=== PATIENT | male | born 1990 | race Caucasian/White ===

== ENCOUNTER 2017-09-21 17:15 | Emergency (ER) | payer OTHER ==
[2017-09-21 17:26] VITALS: BP 117/66; PULSE 74; RESP 20; TEMP 98.1
--- NOTE | 2017-09-21 18:03 | ED ---
Upper Extremity HPI - General Chief Complaint: Extremity Injury, Upper Stated Complaint: Hand injury Time Seen by Provider: 09/21/17 17:55 Source: patient, RN notes reviewed Mode of arrival: ambulatory Limitations: no limitations - History of Present Illness Initial Comments: This is a 26-year-old male who presents to the emergency department with chief complaint of left hand injury. Patient states that last night he punched a wall. He states that this morning he presented to his friend's dad who is a chiropractor who performed x-rays of the hand. Patient states that he fractured his hand. He brought a disc with his x-rays with him to the emergency department. Patient states that he is here to receive a splint. Denies any other injury. Denies fever, chills, chest pain, shortness of breath , abdominal pain, nausea or vomiting, constipation or diarrhea, dysuria or hematuria, numbness or tingling, headache or vision changes. - Related Data Home Medications Medication Instructions Recorded Confirmed No Known Home Medications [No 09/21/17 09/21/17 Known Home Medications] Allergies Allergy/AdvReac Type Severity Reaction Status Date / Time No Known Allergies Allergy Verified 09/21/17 18:14 Review of Systems ROS Statement: Those systems with pertinent positive or pertinent negative responses have been documented in the HPI. ROS Other: All systems not noted in ROS Statement are negative. Past Medical History Past Medical History: Asthma History of Any Multi-Drug Resistant Organisms: None Reported Past Surgical History: No Surgical Hx Reported Past Psychological History: No Psychological Hx Reported Smoking Status: Never smoker Past Alcohol Use History: None Reported Past Drug Use History: None Reported General Exam - General Exam Comments Initial Comments: General: Awake and alert, well-developed; in no apparent distress. HEENT: Head atraumatic, normocephalic. Pupils are equal, round and reactive to light. Extraocular movements intact. Neck: Supple. Normal ROM. Cardiovascular: Regular rate and rhythm. No murmurs, rubs or gallops. Chest symmetrical. Respiratory: Lungs clear to auscultation bilaterally. No wheezes, rales or rhonchi. Normal respiratory effort with no use of accessory muscles. Musculoskeletal: Normal active range of motion of the left fifth digit and MCP. There is localized soft tissue swelling and bruising noted at the fifth MCP. Sensation is intact. Radial pulses are 2+ equal and palpable bilaterally. Skin: [place], warm and dry without rashes or lesions. Neurological: Alert and oriented x3. CN II-XII grossly intact. Speech is fluent and answers are appropriate. No focal neuro deficits. Psychiatric: Normal mood and affect. No overt signs of depression or anxiety noted. Limitations: no limitations Course Vital Signs 09/21/17 17:23 Temperature 98.1 F Pulse Rate 74 Respiratory 20 Rate Blood Pressure 117/66 O2 Sat by Pulse 99 Oximetry Procedures - Orthopedic Splinting/Casting Injury #1 Side: left Upper Extremity Injury Location: hand Upper Extremity Immobilizer: ulnar gutter, synthetic pre-padded splint Additional Comments: short arm OCL ulnar gutter to left hand placed. Patient tolerated well without complication. He is neurovascularly intact. Medical Decision Making - Medical Decision Making This is a 26-year-old male presented to the emergency department chief complaint of left hand fracture. He presented with request to have splint placed. Patient provided a disc of hand x-ray which revealed an abnormality of the fifth metacarpal. The x-ray was reviewed with attending physician, Dr. Sullivan. Images were of poor quality and it was difficult to decipher if fracture was acute or not. I recommended repeat x-rays of the hand to the patient who declined, going against medical advice to obtain better images. He stated he wished to have a splint placed and that he would follow-up with orthopedics tomorrow. A short arm ulnar gutter OCL splint was placed and patient tolerated well without complication. He is neurovascularly intact. He was provided a referral to orthopedics for follow-up. Patient is in agreement with plan and voices understanding. All questions were answered. Disposition Clinical Impression: Injury of left hand Disposition: HOME SELF-CARE Condition: Good Instructions: Hand Fracture (ED), Hand Sprain (ED) Additional Instructions: Please follow-up with orthopedics, Dr. Welch tomorrow morning. Please keep splint clean, dry and intact. Please follow up with primary care provider within 1-2 days. Return to emergency department if symptoms should worsen or any concerns arise. Referrals: Lizandro Zhang MD [STAFF PHYSICIAN] - 1-2 days None,Stated [Primary Care Provider] - 1-2 days Jh Welch MD [STAFF PHYSICIAN] - 1-2 days Time of Disposition: 19:21
== END 2017-09-21 19:27 | disposition home or self-care (01) ==
LOC: EC 17:15
DX: S69.92XA Unspecified injury of left wrist, hand and finger(s), initial encounter (principal); W22.01XA Walked into wall, initial encounter
CPT/HCPCS: 29125; 99283

== ENCOUNTER 2020-12-21 21:04 | Emergency (ER) | payer OTHER ==
[2020-12-21 21:29] VITALS: BP 123/66; PULSE 83; TEMP 98.3
[2020-12-21 23:05] VITALS: RESP 18
--- NOTE | 2020-12-22 00:10 | ED ---
Skin/Abscess/FB HPI - General Chief complaint: Skin/Abscess/Foreign Body Stated complaint: possible allergic reaction/hives Time Seen by Provider: 12/21/20 23:28 Source: patient Mode of arrival: ambulatory Limitations: no limitations - History of Present Illness MD complaint: rash, other Onset/Timin -: week(s) Location: LUE, RUE, LLE, RLE Quality: burning Consistency: intermittent, now resolved Improves with: none Worsens with: none Context: none Associated symptoms: arthralgias Treatments Prior to Arrival: none - Related Data Previous Rx's Medication Instructions Recorded diphenhydrAMINE [Benadryl] 50 mg PO QID PRN #24 capsule 12/22/20 predniSONE [Deltasone] 20 mg PO BID #8 tab 12/22/20 Allergies Allergy/AdvReac Type Severity Reaction Status Date / Time iodine Allergy Rash/Hives Verified 12/21/20 21:29 Review of Systems ROS Statement: Those systems with pertinent positive or pertinent negative responses have been documented in the HPI. ROS Other: All systems not noted in ROS Statement are negative. Constitutional: Denies: fever, chills Respiratory: Denies: cough, dyspnea Cardiovascular: Denies: chest pain Gastrointestinal: Denies: abdominal pain, vomiting, diarrhea Genitourinary: Denies: dysuria, hematuria Musculoskeletal: Reports: arthralgia Skin: Reports: as per HPI, rash Past Medical History Past Medical History: Asthma History of Any Multi-Drug Resistant Organisms: None Reported Past Surgical History: No Surgical Hx Reported Past Psychological History: No Psychological Hx Reported Smoking Status: Never smoker Past Alcohol Use History: None Reported Past Drug Use History: Marijuana General Exam Limitations: no limitations General appearance: alert, in no apparent distress Head exam: Present: atraumatic, normocephalic Eye exam: Present: normal appearance. Absent: scleral icterus, conjunctival injection Respiratory exam: Present: normal lung sounds bilaterally. Absent: respiratory distress, wheezes, rales, rhonchi, stridor Cardiovascular Exam: Present: regular rate, normal rhythm, normal heart sounds. Absent: systolic murmur, diastolic murmur, rubs, gallop GI/Abdominal exam: Present: soft. Absent: distended, tenderness, guarding, rebound, rigid, mass Extremities exam: Present: normal inspection, normal capillary refill. Absent: pedal edema, calf tenderness Neurological exam: Present: alert Skin exam: Present: warm, dry, intact, normal color, urticaria (volar aspect lef t forearm) Course Vital Signs 12/21/20 12/21/20 21:22 23:05 Temperature 98.3 F Pulse Rate 83 Respiratory 20 18 Rate Blood Pressure 123/66 O2 Sat by Pulse 100 Oximetry Medical Decision Making - Lab Data Result diagrams: 12/21/20 00:05 12/21/20 00:05 Lab Results 12/21/20 12/21/20 Range/Units 00:05 00:05 WBC 7.0 (3.8-10.6) k/uL RBC 4.81 (4.30-5.90) m/uL Hgb 15.4 (13.0-17.5) gm/dL Hct 43.1 (39.0-53.0) % MCV 89.6 (80.0-100.0) fL MCH 32.0 (25.0-35.0) pg MCHC 35.7 (31.0-37.0) g/dL RDW 11.6 (11.5-15.5) % Plt Count 227 (150-450) k/uL MPV 8.2 Neutrophils % 77 % Lymphocytes % 15 % Monocytes % 7 % Eosinophils % 1 % Basophils % 0 % Neutrophils # 5.4 (1.3-7.7) k/uL Lymphocytes # 1.0 (1.0-4.8) k/uL Monocytes # 0.5 (0-1.0) k/uL Eosinophils # 0.0 (0-0.7) k/uL Basophils # 0.0 (0-0.2) k/uL Sodium 139 (137-145) mmol/L Potassium 4.0 (3.5-5.1) mmol/L Chloride 104 (98-107) mmol/L Carbon Dioxide 26 (22-30) mmol/L Anion Gap 9 mmol/L BUN 11 (9-20) mg/dL Creatinine 0.67 (0.66-1.25) mg/dL Est GFR (CKD-EPI)AfAm >90 (>60 ml/min/1.73 sqM) Est GFR (CKD-EPI)NonAf >90 (>60 ml/min/1.73 sqM) Glucose 97 (74-99) mg/dL Calcium 9.7 (8.4-10.2) mg/dL C-Reactive Protein 36.9 H (<10.0) mg/L Disposition Clinical Impression: Urticaria Disposition: HOME SELF-CARE Condition: Good Instructions (If sedation given, give patient instructions): Urticaria (ED) Prescriptions: diphenhydrAMINE [Benadryl] 50 mg PO QID PRN #24 capsule PRN Reason: Rash predniSONE [Deltasone] 20 mg PO BID #8 tab Is patient prescribed a controlled substance at d/c from ED?: No Referrals: None,Stated [Primary Care Provider] - 1-2 days Shayna Mckeon MD [STAFF PHYSICIAN] - 1-2 days Amina Yoder MD [STAFF PHYSICIAN] - 1-2 days
[2020-12-22 00:34] LABS: Basophils % (A) 0 %; Eosinophils % (A) 1 %; HCT 43.1 % (39.0-53.0); HGB 15.4 gm/dL (13.0-17.5); Lymphocytes % (A) 15 %; MCHC 35.7 g/dL (31.0-37.0); MCV 89.6 fL (80.0-100.0); Mean Platelet Volume 8.2; Monocytes # (A) 0.5 k/uL (0-1.0); Monocytes % (A) 7 %; Neutrophils # (A) 5.4 k/uL (1.3-7.7); Neutrophils % (A) 77 %; Platelet Count 227 k/uL (150-450); RBC 4.81 m/uL (4.30-5.90); RDW 11.6 % (11.5-15.5)
[2020-12-22 00:50] LABS: African American GFR (CKD) >90 (>60 ml/min/1.73 sqM); Anion Gap 9 mmol/L; Blood Urea Nitrogen 11 mg/dL (9-20); C Reactive Protein 36.9 mg/L (<10.0); Calcium 9.7 mg/dL (8.4-10.2); Carbon Dioxide 26 mmol/L (22-30); Chloride 104 mmol/L (98-107); Glucose 97 mg/dL (74-99); Non-African American GFR(CKD) >90 (>60 ml/min/1.73 sqM); Sodium 139 mmol/L (137-145)
== END 2020-12-22 02:00 | disposition home or self-care (01) ==
LOC: EC 21:04
DX: L50.9 Urticaria, unspecified (principal); U07.1 COVID-19; F12.90 Cannabis use, unspecified, uncomplicated; J45.909 Unspecified asthma, uncomplicated
CPT/HCPCS: 36415; 80048; 85025; 86140; 87635; 99283

== ENCOUNTER → 2022-01-14 | Outpatient (CLI) | payer OTHER ==
[2022-01-14 18:25] LABS: Basophils # (A) 0.03 X 10*3/uL (0.00-0.10); Basophils % (A) 0.6 %; Eosinophils % (A) 2.1 %; HGB 14.9 g/dL (13.0-17.0); Immature Grans, Automated 0.2 %; Lymphocytes # (A) 1.25 X 10*3/uL (0.90-5.00); Lymphocytes % (A) 25.8 %; MCHC 32.4 g/dL (32.0-37.0); MCV 92.6 fL (80.0-97.0); Mean Platelet Volume 11.6 fL (9.5-12.2); Monocytes # (A) 0.36 X 10*3/uL (0.20-1.00); Monocytes % (A) 7.4 %; NRBC Per 100 WBC 0 /100 WBCS (0.0-0.0); Neutrophils # (A) 3.09 X 10*3/uL (1.80-7.70); Neutrophils % (A) 63.9 %; Platelet Count 209 X 10*3/uL (140-440); RBC 4.97 X 10*6/uL (4.40-5.60); RDW 11.9 % (11.5-14.5); WBC 4.84 X 10*3/uL (4.50-10.00)
[2022-01-14 18:59] LABS: Erythrocyte Sedimentation Rate 4 mm/Hr (0-15)
[2022-01-14 23:20] LABS: Chol/HDL Ratio 3.88 Ratio
[2022-01-14 23:25] LABS: ALT 24 U/L (10-49); AST 21 U/L (14-35); Albumin/Globulin Ratio 2.57 (1.60-3.17); Alkaline Phosphatase 84 U/L (41-126); BUN/Creat Ratio 12.81 Ratio (12.00-20.00); Blood Urea Nitrogen 11.7 mg/dL (9.0-27.0); C Reactive Protein <0.30 mg/dL (0.00-0.80); Calcium 9.7 mg/dL (8.7-10.3); Carbon Dioxide 19.3 mmol/L (20.0-27.5); Chloride 107 mmol/L (96-109); Creatine Kinase 136 U/L (35-257); Glucose 89 mg/dL (70-110); Magnesium 2.1 mg/dL (1.5-2.4); Potassium 4.4 mmol/L (3.5-5.5); Sodium 142 mmol/L (135-145)
== END | disposition home or self-care (01) ==
LOC: LABWHC1 13:47
PROVIDERS: ATTEND Internal Medicine
DX: E78.5 Hyperlipidemia, unspecified (principal); D64.9 Anemia, unspecified; E55.9 Vitamin D deficiency, unspecified
CPT/HCPCS: 36415; 80053; 80061; 82306; 82550; 83721; 83735; 84100; 85025; 85652; 86140

== ENCOUNTER 2024-03-13 01:40 | Emergency (ER) | payer OTHER ==
[2024-03-13 01:45] VITALS: TEMP 98
[2024-03-13] MEDS: methylPREDNISolone SOD SUCCI 125 MG/2 ML VIAL IM ONE (02:39)
[2024-03-13] MEDS: diphenhydrAMINE 50 MG/ML 1 ML VIAL IM STA (02:41)
[2024-03-13] MEDS: FAMOTIDINE 20 MG TAB PO STA (02:42)
--- NOTE | 2024-03-13 03:47 | ED ---
Allergic Reaction HPI - General Chief complaint: Allergic Reaction Stated complaint: Allergic Reaction, Difficulty Breathing Time Seen by Provider: 03/13/24 01:50 Source: patient Mode of arrival: ambulatory - History of Present Illness Initial Comments: 33-year-old male presenting with chief complaint of allergic reaction. He states that this evening he ate [employer], food he has eaten before. Within an hour after eating he started having swelling around the eyes. He states that his throat feels "scratchy". He admits to GI upset with nausea and diarrhea. - Related Data Previous Rx's Medication Instructions Recorded diphenhydrAMINE [Benadryl] 50 mg PO QID PRN #24 capsule 12/22/20 predniSONE [Deltasone] 20 mg PO BID #8 tab 12/22/20 Allergies Allergy/AdvReac Type Severity Reaction Status Date / Time iodine Allergy Rash/Hives Verified 03/13/24 01:45 Review of Systems ROS Statement: Those systems with pertinent positive or pertinent negative responses have been documented in the HPI. ROS Other: All systems not noted in ROS Statement are negative. Past Medical History Past Medical History: Asthma History of Any Multi-Drug Resistant Organisms: None Reported Past Surgical History: No Surgical Hx Reported Past Psychological History: No Psychological Hx Reported Smoking Status: Never smoker Past Alcohol Use History: None Reported Past Drug Use History: Marijuana General Exam General appearance: alert, in no apparent distress Head exam: Present: atraumatic, normocephalic Eye exam: Present: EOMI, periorbital swelling Expanded Mouth exam: Present: normal external inspection Throat exam: normal inspection Neck exam: Present: normal inspection. Absent: meningismus Respiratory exam: Present: normal lung sounds bilaterally. Absent: respiratory distress, wheezes, rales, rhonchi, stridor Cardiovascular Exam: Present: regular rate, normal rhythm, normal heart sounds. Absent: systolic murmur, diastolic murmur, rubs, gallop, clicks Neurological exam: Present: alert, oriented X3 Psychiatric exam: Present: normal affect, normal mood Skin exam: Present: normal color Course Vital Signs 03/13/24 03/13/24 03/13/24 01:43 02:55 04:29 Temperature 98.0 F Pulse Rate 65 53 L 51 L Respiratory 18 20 18 Rate Blood Pressure 101/62 104/73 113/68 O2 Sat by Pulse 97 100 100 Oximetry Medical Decision Making - Medical Decision Making Was pt. sent in by a medical professional or institution (HELDER Guillory, CURRICULUM DESIGNER, urgent care, hospital, or jail...) When possible be specific @ -No Did you speak to anyone other than the patient for history (EMS, parent, family, police, friend...)? What history was obtained from this source @ -No Did you review nursing and triage notes (agree or disagree)? Why? @ -I reviewed and agree with nursing and triage notes Were old charts reviewed (outside hosp., previous admission, EMS record, old EKG, old radiological studies, urgent care reports/EKG's, jail records)? Report findings @ -No old charts were reviewed Differential Diagnosis (chest pain, altered mental status, abdominal pain women, abdominal pain men, vaginal bleeding, weakness, fever, dyspnea, syncope, headache, dizziness, GI bleed, back pain, seizure, CVA, palpatations, mental health, musculoskeletal)? @ -Differential includes anaphylaxis, general allergic reaction, periorbital cellulitis, this is not an all-inclusive list EKG interpreted by me (3pts min.). @ -EKG shows sinus bradycardia ventricular rate 49. MD interval 206. QRS 104. QT 397. QTc 368. X-rays interpreted by me (1pt min.). @ -None done CT interpreted by me (1pt min.). @ -None done U/S interpreted by me (1pt. min.). @ -None done What testing was considered but not performed or refused? (CT, X-rays, U/S, labs)? Why? @ -None What meds were considered but not given or refused? Why? @ -None Did you discuss the management of the patient with other professionals (professionals i.e. HELDER Guillory, CURRICULUM DESIGNER, lab, RT, psych nurse, manager social responsibility, pool lifeguard, teacher, attendance officer, manager sales and marketing)? Give summary @ -No Was smoking cessation discussed for >3mins.? @ -No Was critical care preformed (if so, how long)? @ -No Were there social determinants of health that impacted care today? How? (Homelessness, low income, unemployed, alcoholism, drug addiction, transportation, low edu. Level, literacy, decrease access to med. care, fci, rehab)? @ -No Was there de-escalation of care discussed even if they declined (Discuss DNR or withdrawal of care, Hospice)? DNR status @ -No What co-morbidities impacted this encounter? (DM, HTN, Smoking, COPD, CAD, Cancer, CVA, ARF, Chemo, Hep., AIDS, mental health diagnosis, sleep apnea, morbid obesity)? @ -None Was patient admitted / discharged? Hospital course, mention meds given and route, prescriptions, significant lab abnormalities, going to OR and other pertinent info. @ -33-year-old male presenting with chief complaint of allergic reaction. This happened after eating [employer] this evening. He has swelling to the eyelids and a scratchy feeling in his throat. He is having no difficulty breathing or swallowing. Heart and lungs are clear to auscultation. He is given Benadryl, Solu-Medrol, and Pepcid. Prior to receiving the injections he had mentioned to the nurse that he does not like needles. Afterwards he went to the bathroom because he was not feeling well and had to call for assistance due to feeling dizzy. He was found to be diaphoretic, pale, hyperventilating. Patient was assisted by staff off the toilet and back to his room. He was placed on the cardiac monitor technician. Vitals were updated and he was in no acute distress. EKG was obtained which showed sinus bradycardia. On my reassessment the patient reports that he feels much better. I believe that this episode was a vasovagal presyncopal episode due to fear of needles. Patient is feeling much better and was relaxing comfortably. He feels comfortable discharge home. Follow-up with PCP. Report back to ER with any new or worsening symptoms. Discussed return parameters and answered all questions. Patient conveyed verbal understanding and agreed to the plan. I discussed this case in detail with my attending Dr. Tavares Undiagnosed new problem with uncertain prognosis? @ -No Drug Therapy requiring intensive monitoring for toxicity (Heparin, Nitro, Insulin, Cardizem)? @ -No Were any procedures done? @ -No Diagnosis/symptom? @ -Allergic reaction; vasovagal presyncope Acute, or Chronic, or Acute on Chronic? @ -Acute Uncomplicated (without systemic symptoms) or Complicated (systemic symptoms)? @ -Uncomplicated; complicated Side effects of treatment? @ -No Exacerbation, Progression, or Severe Exacerbation? @ -No Poses a threat to life or bodily function? How? (Chest pain, [place], [place], pneumonia, PE, COPD, DKA, ARF, appy, cholecystitis, CVA, Diverticulitis, Homicidal, Suicidal, threat to staff... and all critical care pts) @ -Unlikely Disposition Clinical Impression: Allergic reaction, Vasovagal near syncope Disposition: HOME SELF-CARE Condition: Good Instructions (If sedation given, give patient instructions): General Allergic Reaction (ED) Additional Instructions: Follow-up with PCP. Report back to ER with any new or worsening symptoms. Take Benadryl at home as needed. Is patient prescribed a controlled substance at d/c from ED?: No Referrals: Oscar Krishnamurthy MD [Primary Care Provider] - 1-2 days Time of Disposition: 04:25
[2024-03-13 04:33] VITALS: BP 113/68; PULSE 51; RESP 18
== END 2024-03-13 04:33 | disposition home or self-care (01) ==
LOC: EC 01:40
DX: T78.1XXA Other adverse food reactions, not elsewhere classified, initial encounter (principal); R55 Syncope and collapse; R00.1 Bradycardia, unspecified; Z88.8 Allergy status to other drugs, medicaments and biological substances
CPT/HCPCS: 93005; 99283; 96372 ×2; J1200; J2919